=== PATIENT | female | born 1995 | race Two or more races ===

== ENCOUNTER 2020-08-26 07:02 | Emergency (ER) | payer SELFPAY ==
[~2020-08-26] VITALS: Ht 172.7 cm; Wt 75.3 kg
[2020-08-26 08:07] LABS: Basophils # (auto) 0 10 ^3/uL (0-0.2); Basophils % (auto) 0.3 % (0.0-2.0); Eosinophils # (auto) 0 10 ^3/uL (0-0.8); Eosinophils % (auto) 0.2 % (0.0-7.0); Hematocrit 37.3 % (36.0-46.0); Lymphocytes # (auto) 1.8 10 ^3/uL (0.4-5.4); Lymphocytes % (auto) 21.9 % (10.0-50.0); Mean Corpuscular Hemoglobin 31.7 pg (28.0-32.0); Mean Corpuscular Hgb Conc. 34.8 g/dL (32.0-36.0); Monocytes # (auto) 0.5 10 ^3/uL (0-1.3); Monocytes % (auto) 6.1 % (0.0-12.0); Neutrophils # (auto) 5.9 10 ^3/uL (1.6-8.6); Neutrophils % (auto) 71.5 % (37.0-80.0); Platelet Count (auto) 254 10^3/uL (140-450); Red Blood Cells 4.09 10^6/uL (4.0-5.20); Red Cell Distribution Width 13.8 % (11.8-14.3); White Blood Cell 8.3 10^3/uL (4.4-10.8)
[2020-08-26 08:32] LABS: Albumin 4.1 g/dL (3.4-5.0); BUN/Creatinine Ratio 15.6; Calcium 8.9 mg/dL (8.5-10.1); Potassium 3.3 mmol/L (3.5-5.1)
[2020-08-26 08:35] LABS: Bilirubin, Total 0.9 mg/dL (0.2-1.0); Total Protein 7.8 g/dL (6.4-8.2)
[2020-08-26] MEDS ORDERED: SODIUM CHLORIDE 0.9% 1,000 ML IV ONE (11:15)
[2020-08-26] MEDS ORDERED: PROMETHAZINE HCL 25 MG/ML 1ML IV ONE (11:15)
[2020-08-26 12:00] LABS: Urine Bacteria FEW /hpf (None Seen); Urine Blood Negative /uL (Negative); Urine Mucus FEW (None Seen); Urine Specific Gravity 1.029 (1.001-1.035); Urine WBC 2 /hpf (0 - 5)
[2020-08-26 12:39] VITALS: BP 111/61
== END 2020-08-26 12:40 | disposition home or self-care (01) ==
LOC: ER 07:02
DX: O21.9 Vomiting of pregnancy, unspecified (principal); Z3A.00 Weeks of gestation of pregnancy not specified
CPT/HCPCS: 36415; 80053; 81001; 84702; 85025; 96361; 96374; 99283; J2550; J7030

== ENCOUNTER 2021-01-13 04:20 | Observation (INO) | payer MEDICAID ==
[~2021-01-13] VITALS: Ht 172.7 cm; Wt 82.6 kg
== END 2021-01-13 06:40 | disposition home or self-care (01) ==
LOC: LDRP 04:20
PROVIDERS: ADMIT Obstetrics & Gynecology; ATTEND Obstetrics & Gynecology
DX: O36.8120 Decreased fetal movements, second trimester, not applicable or unspecified (principal); O26.892 Other specified pregnancy related conditions, second trimester; R10.9 Unspecified abdominal pain; O46.92 Antepartum hemorrhage, unspecified, second trimester; O21.2 Late vomiting of pregnancy; Z3A.26 26 weeks gestation of pregnancy
CPT/HCPCS: 59025; 76815; 81002; G0378